=== PATIENT | male | born 1975 | race American Indian/Alaskan Native ===

== ENCOUNTER 2018-08-17 03:11 | Emergency (ER) | payer SELFPAY ==
[2018-08-17 04:06] LABS: INR 0.85 (0.87-1.13)
[2018-08-17 04:07] LABS: Partial Thromboplastin Time 26.2 Sec. (24.2-36.6)
--- NOTE | 2018-08-17 04:23 | XRay Report ---
FINAL REPORT EXAM: XR TIBIA FIBULA 2V RT HISTORY: right leg pain COMPARISONS: None. FINDINGS: AP and lateral views right tib fib No bone lesion, periosteal reaction, or fracture. No deformity or gross malalignment. Achilles insertional enthesophytes incidentally noted. Right ankle periarticular soft tissue swelling. IMPRESSION: No evident fracture in the imaged right lower extremity.
[2018-08-17] MEDS ORDERED: NORCO 5/325 PO ONE (07:54)
[2018-08-17 08:36] LABS: BUN/Creatinine Ratio 9; Blood Urea Nitrogen 6 mg/dL (9-20); Calcium 9.1 mg/dL (8.4-10.2); Hemolysis Index 5
[2018-08-17 08:47] LABS: Basophils # (Auto) 0.1 K/mm3 (0.0-0.1); Basophils % (Auto) 0.8 % (0.0-1.8); Eosinophils # (Auto) 0.1 K/mm3 (0.0-0.4); Eosinophils % (Auto) 1.2 % (0.0-4.3); Hematocrit 39.5 % (35.5-45.6); Hemoglobin 13.6 gm/dl (11.8-15.2); Lymphocytes # (Auto) 2.3 K/mm3 (1.2-5.4); Lymphocytes % (Auto) 26.9 % (13.4-35.0); Mean Corpuscular HGB Conc 35 % (32-34); Mean Corpuscular Hemoglobin 33 pg (28-32); Mean Corpuscular Volume 97 fl (84-94); Monocytes # (Auto) 1.2 K/mm3 (0.0-0.8); Monocytes % (Auto) 13.8 % (0.0-7.3); Platelet Count 233 K/mm3 (140-440); Red Blood Count 4.08 M/mm3 (3.65-5.03); Red Cell Distribution Width 14.5 % (13.2-15.2)
[2018-08-17] MEDS ORDERED: XYLOCAINE 1% MPF 5 mL INFILTRATI ONE (12:06)
[2018-08-17] MEDS ORDERED: ROCEPHIN IM ONE (12:06)
--- NOTE | 2018-08-17 12:06 | Emergency Department Report ---
ED General Adult HPI - General Chief complaint: Extremity Injury, Upper Stated complaint: RT LEG PAIN/SWELLING Time Seen by Provider: 08/17/18 07:48 Source: patient Mode of arrival: Ambulatory Limitations: No Limitations - History of Present Illness Initial comments: 43-year-old male states he fell into a coffee table injuring his infrapatellar area of his right leg last . He obtained an x-ray and [place] at another emergency department which was reported as negative. The patient developed leg swelling and redness involving the impact area as well as his distal leg. He does not report fever or chills. -: Gradual, days(s) Location: right, lower extremity (below the knee) Radiation: non-radiation Severity scale (0 -10): 3 Quality: aching Consistency: now resolved Improves with: none Worsens with: none Associated Symptoms: denies other symptoms Treatments Prior to Arrival: none - Related Data Previous Rx's Medication Instructions Recorded Last Taken Type Sulfamethoxazole/Trimethoprim 1 each PO BID #20 tablet 08/17/18 Unknown Rx [Bactrim 400-80 mg Tablet] Allergies Allergy/AdvReac Type Severity Reaction Status Date / Time No Known Allergies Allergy Unverified 08/17/18 03:24 ED Review of Systems ROS: Stated complaint: RT LEG PAIN/SWELLING Other details as noted in HPI Constitutional: denies: chills, fever Eyes: denies: eye pain, eye discharge, vision change ENT: denies: ear pain, throat pain Respiratory: denies: cough, shortness of breath, wheezing Cardiovascular: denies: chest pain, palpitations Endocrine: no symptoms reported Gastrointestinal: denies: abdominal pain, nausea, diarrhea Genitourinary: denies: urgency, dysuria Musculoskeletal: as per HPI. denies: back pain, joint swelling, arthralgia Skin: denies: rash, lesions Neurological: denies: headache, weakness, paresthesias Psychiatric: denies: anxiety, depression Hematological/Lymphatic: denies: easy bleeding, easy bruising ED Past Medical Hx - Past Medical History Previous Medical History?: Yes Hx Hypertension: Yes Additional medical history: acid reflux - Surgical History Past Surgical History?: No - Social History Smoking Status: Never Smoker Substance Use Type: None - Medications Home Medications: Home Medications Medication Instructions Recorded Confirmed Last Taken Type Sulfamethoxazole/Trimethoprim 1 each PO BID #20 tablet 08/17/18 Unknown Rx [Bactrim 400-80 mg Tablet] ED Physical Exam - General Limitations: No Limitations General appearance: alert, in no apparent distress - Head Head exam: Present: atraumatic, normocephalic - Eye Eye exam: Present: normal appearance. Absent: scleral icterus - ENT ENT exam: Present: mucous membranes moist - Neck Neck exam: Present: normal inspection. Absent: tenderness, meningismus - Respiratory Respiratory exam: Present: normal lung sounds bilaterally. Absent: respiratory distress - Cardiovascular Cardiovascular Exam: Present: regular rate, normal rhythm. Absent: systolic murmur, diastolic murmur, rubs, gallop - GI/Abdominal GI/Abdominal exam: Present: soft, normal bowel sounds. Absent: distended, tenderness, guarding, rebound, rigid - Rectal Rectal exam: Present: deferred - Extremities Exam Extremities exam: Present: other (there is infrapatellar swelling and erythema. I don't feel any fluid in the bursa. There is 1-2+ ankle and pedal edema with erythema and some warmth.) - Back Exam Back exam: Present: normal inspection - Neurological Exam Neurological exam: Present: alert, oriented X3, CN II-XII intact. Absent: motor sensory deficit - Psychiatric Psychiatric exam: Present: normal affect, normal mood - Skin Skin exam: Present: warm, dry, intact, normal color. Absent: rash ED Course Vital Signs 08/17/18 08/17/18 08/17/18 03:15 03:18 08:30 Temperature 98.4 F 98.4 F Pulse Rate 98 H 92 H Respiratory 18 17 16 Rate Blood Pressure 162/109 162/109 O2 Sat by Pulse 98 100 Oximetry - Reevaluation(s) Reevaluation #1: Patient is resting comfortably. He does not have a DVT. He is not toxic or septic. I think it would be worthwhile to attempt to treat him as an outpatient. He will be given Rocephin now and Bactrim Rx. He is instructed to return to the emergency department within the next 24-48 hours if there is no improvement as hospitalization would likely be necessary should he fail above antibiotics. 08/17/18 12:12 ED Medical Decision Making - Lab Data Result diagrams: 08/17/18 07:58 08/17/18 07:58 Laboratory Results - last 24 hr 10/05/2808/17/18 08/17/18 03:28 07:58 07:58 WBC 8.6 RBC 4.08 Hgb 13.6 Hct 39.5 MCV 97 H MCH 33 H MCHC 35 H RDW 14.5 Plt Count 233 Lymph % (Auto) 26.9 [place] % (Auto) 13.8 H Eos % (Auto) 1.2 Baso % (Auto) 0.8 Lymph # 2.3 [place] # 1.2 H Eos # 0.1 Baso # 0.1 Seg Neutrophils % 57.3 Seg Neutrophils # 5.0 PT 12.1 L INR 0.85 L APTT 26.2 Sodium 139 Potassium 3.5 L Chloride 99.6 Carbon Dioxide 28 Anion Gap 15 BUN 6 L Creatinine 0.7 L Estimated GFR > 60 BUN/Creatinine Ratio 9 Glucose 93 Calcium 9.1 - Radiology Data Radiology results: report reviewed interpreted by me: X-ray and Doppler no acute findings Critical care attestation.: If time is entered above; I have spent that time in minutes in the direct care of this critically ill patient, excluding procedure time. ED Disposition Clinical Impression: Cellulitis of right leg Disposition: DC-01 TO HOME OR SELFCARE Is pt being admited?: No Does the pt Need Aspirin: No Condition: Stable Instructions: Cellulitis (ED) Additional Instructions: Elevate leg. Rx as directed. Return to the emergency department fever or chills or no improvement within the next 24-48 hours. Follow-up with primary care physician or clinic as referred. Prescriptions: Sulfamethoxazole/Trimethoprim [Bactrim 400-80 mg Tablet] 1 each PO BID #20 tablet Referrals: KITTY PARKER MD [Primary Care Provider] - 2-3 Days [facility] [Provider Group] - 3-5 Days Time of Disposition: 12:15
[2018-08-17 12:23] VITALS: BP 159/97
--- NOTE | 2018-08-19 12:24 | Vascular Lab Report ---
Right Lower Extremity Venous Duplex Study: Reason for Exam: Pain and swelling of the right lower extremity. Comments on the Right: All veins visualized are freely compressible without evidence of internal echogenicity. Flow is spontaneous and phasic throughout. No evidence of acute or chronic thrombus is seen in any of the vessels visualized. A soft tissue change in the right knee area is consistent with a Greene's cyst. Comments on the Left: A limited duplex study was done of the proximal veins of the left lower extremity. All veins visualized are freely compressible without evidence of internal echogenicity. Flow is spontaneous and phasic throughout. No evidence of acute or chronic thrombus is seen in any of the vessels visualized. Impression: No evidence of acute or chronic deep venous thrombosis in the right lower extremity. A soft tissue change in the right knee area is consistent with a Greene's cyst.
== END 2018-08-17 12:49 | disposition home or self-care (01) ==
LOC: ED 03:11
DX: L03.115 Cellulitis of right lower limb (principal); I10 Essential (primary) hypertension
CPT/HCPCS: 36415; 73590; 80048; 85025; 85610; 85730; 93971; 96372; 99284; J0696

== ENCOUNTER 2022-04-04 00:48 | Emergency (ER) | payer SELFPAY ==
[2022-04-04 01:52] VITALS: BP 122/82
== END 2022-04-04 02:00 | disposition left against medical advice (07) ==
LOC: ED 00:48
DX: M79.89 Other specified soft tissue disorders (principal); Z53.21 Procedure and treatment not carried out due to patient leaving prior to being seen by health care provider